=== PATIENT | female | born 1975 | race Caucasian/White ===

== ENCOUNTER 2018-11-23 20:40 | Emergency (ER) | payer OTHER ==
--- OUTSIDE RECORDS SUMMARY | 2018-11-23 20:42 | XMS REPORT ---
:1975 [facility] Address [address] [place] [address] [address] [place] [address] Care Team Providers Name Role Phone Unavailable Unavailable Unavailable Problems This patient has no known problems. Allergies, Adverse Reactions, Alerts This patient has no known allergies or adverse reactions. Medications This patient has no known medications.
[2018-11-23] MEDS ORDERED: TETANUS & DIPHTHERIA TOX,ADULT 0.5 ML VIAL ONE (21:49)
[2018-11-23] MEDS ORDERED: CODEINE 30MG/APAP 300MG TAB ONE (21:49)
[2018-11-23] MEDS ORDERED: AMOX/K CLAV 875 MG TAB ONE (21:49)
--- NOTE | 2018-11-23 22:11 | RAD REPORT ---
EXAM DESCRIPTION: RAD - Hand Left 3 View - 11/23/2018 10:05 pm CLINICAL HISTORY: ANIMAL BITE COMPARISON: No comparisons FINDINGS: Soft tissue swelling is seen affecting the second digit left hand. No fracture, dislocatio n or radiopaque foreign body.
--- NOTE | 2018-11-23 22:29 | ER ---
Nurse's Notes [facility] Name: Emy Sheffield Age: 43 yrs Sex: Female : 1975 Arrival Date: 11/23/2018 Time: 20:40 Bed 28 Private MD: Diagnosis: Bitten by rat;Puncture wound without foreign body of left middle finger without damage to nail;Puncture wound without foreign body of left index finger without damage to nail Presentation: 11/23 20:44 Presenting complaint: Patient states: There was a rat caught in a drawer and I was la1 trying to get it out and it bit my fingers this morning. Transition of care: patient was not received from another setting of care. Onset of symptoms was November 23, 2018. Risk Assessment: Do you want to hurt yourself or someone else? Patient reports no desire to harm self or others. Initial Sepsis Screen: Does the patient meet any 2 criteria? No. Patient's initial sepsis screen is negative. Does the patient have a suspected source of infection? No. Patient's initial sepsis screen is negative. Care prior to arrival: None. 20:44 Method Of Arrival: Ambulatory la1 20:44 Acuity: NADIA 3 la1 Triage Assessment: 22:18 Bite description: bite sustained to left hand by a rat, animal information: mg2 vaccination(s). General: Appears in no apparent distress. comfortable, Behavior is calm, cooperative. 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 - Social history:: Smoking status: Patient uses tobacco products, smokes one-half pack cigarettes per day. - Ebola Screening: : No symptoms or risks identified at this time. Screenin:51 Abuse screen: Denies threats or abuse. Denies injuries from another. Nutritional mg2 screening: No deficits noted. Tuberculosis screening: No symptoms or risk factors identified. Fall Risk None identified. Assessment: 20:53 General: Appears in no apparent distress. comfortable, Behavior is calm, cooperative. mg2 Pain: Complains of pain in left index and middle finger Pain does not radiate. Pain currently is 5 out of 10 on a pain scale. Quality of pain is described as aching, Pain began suddenly, this morning \T\ 9 am Is intermittent, Alleviated by medications, Aggravated by touch. Neuro: Level of Consciousness is awake, alert, obeys commands, Oriented to person, place, time, situation. Cardiovascular: Capillary refill < 3 seconds Patient's skin is warm and dry. Respiratory: Airway is patent Respiratory effort is even, unlabored, Respiratory pattern is regular, symmetrical. GI: No signs and/or symptoms were reported involving the gastrointestinal system. : No signs and/or symptoms were reported regarding the genitourinary system. EENT: No signs and/or symptoms were reported regarding the EENT system. Derm: Skin is intact, is healthy with good turgor, Skin is pink, warm \T\ dry. normal, Skin temperature is warm Wound noted left hand Wound is closed, no bleeding noted. Musculoskeletal: Circulation, motion, and sensation intact. Capillary refill < 3 seconds, Swelling present in left index and middle finger. Injury Description: Bite sustained to left hand caused by a rat, is superficial, was sustained \T\ 0900 today. 22:18 Reassessment: Patient appears in no apparent distress at this time. Patient and/or mg2 family updated on plan of care and expected duration. Pain level reassessed. Patient is alert, oriented x 3, equal unlabored respirations, skin warm/dry/pink. Vital Signs: 20:45 BP 121 / 81; Pulse 78; Resp 18; Temp 98.4; Pulse Ox 98% on R/A; Weight 104.33 kg; la1 Height 5 ft. 1 in. (154.94 cm); 22:20 BP 124 / 73; Pulse 82; Resp 18; Pulse Ox 100% on R/A; mg2 20:45 Body Mass Index 43.46 (104.33 kg, 154.94 cm) la1 ED Course: 20:40 Patient arrived in ED. ag3 20:44 Triage completed. la1 20:45 Arm band placed on left wrist. la1 20:46 Rudi Mari NP is PHCP. pm1 20:46 Claudine Choe MD is Attending Physician. pm1 20:50 Bobo Vernon RN is Primary Nurse. mg2 21:00 No provider procedures requiring assistance completed. Patient did not have IV access mg2 during this emergency room visit. 22:06 Hand Left 3 View XRAY In Process Unspecified. EDMS 22:19 Patient has correct armband on for positive identification. mg2 Administered Medications: 21:44 Drug: Augmentin 875 mg Route: PO; mg2 22:42 Follow up: Response: No adverse reaction mg2 21:44 Drug: Tetanus-Diphtheria Toxoid Adult 0.5 ml {Photographic Plate Maker: [employer]. Exp: mg2 12/03/2020. Lot #: [id number]. } Route: IM; Site: left deltoid; 22:42 Follow up: Response: No adverse reaction mg2 21:44 Drug: Tylenol #3 (300 mg-30 mg) 1 tablet Route: PO; mg2 22:42 Follow up: Response: No adverse reaction; Marked relief of symptoms; Pain is decreased mg2 Outcome: 22:28 Discharge ordered by MD. pm1 22:42 Discharged to home ambulatory, with family. mg2 22:42 Condition: stable 22:42 Discharge instructions given to patient, family, Instructed on discharge instructions, follow up and referral plans. medication usage, Demonstrated understanding of instructions, follow-up care, medications, wound care, Prescriptions given X 2. 22:43 Patient left the ED. mg2 Signatures: Dispatcher [employer] EDMS Seth Burnett RN RN la1 Rudi Mari, YASMIN PACKAGE CRIMPER pm1 Bobo Vernon RN RN mg2 Mireya Jovel3
--- NOTE | 2018-11-23 22:29 | EDPHYS ---
Physician Documentation [facility] Name: Emy Sheffield Age: 43 yrs Sex: Female : 1975 Arrival Date: 11/23/2018 Time: 20:40 Bed 28 Private MD: ED Physician Claudine Choe HPI: 11/23 21:45 This 43 yrs old Female presents to ER via Ambulatory with complaints of pm1 Animal Bite. 21:45 The patient was bitten on the left hand, by a rat, Attempting to remove rat, at home. pm1 Onset: The symptoms/episode began/occurred this morning. Animal information: The animal was reported to appear healthy. Rat currently still trapped in her drawer. Secondary to the bite the patient reports multiple puncture wounds, 2nd and 3rd left fingers. Associated signs and symptoms: Pertinent negatives: fever, numbness distal to wound, suspected foreign body. The patient has not experienced similar symptoms in the past. The patient has not recently seen a physician. 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 - Social history:: Smoking status: Patient uses tobacco products, smokes one-half pack cigarettes per day. - Ebola Screening: : No symptoms or risks identified at this time. ROS: 21:45 Constitutional: Negative for fever, chills, and weight loss, Eyes: Negative for injury, pm1 pain, redness, and discharge, ENT: Negative for injury, pain, and discharge, Neck: Negative for injury, pain, and swelling, Cardiovascular: Negative for chest pain, palpitations, and edema, Respiratory: Negative for shortness of breath, cough, wheezing, and pleuritic chest pain, Abdomen/GI: Negative for abdominal pain, nausea, vomiting, diarrhea, and constipation, Back: Negative for injury and pain, : Negative for injury, bleeding, discharge, and swelling, MS/Extremity: Negative for injury and deformity. 21:45 Neuro: Negative for headache, weakness, numbness, tingling, and seizure. 21:45 Skin: Positive for puncture, of the palmar aspect of distal phalanx of left middle finger and palmar aspect of proximal phalanx of left index finger. Exam: 21:45 Constitutional: This is a well developed, well nourished patient who is awake, alert, pm1 and in no acute distress. Head/Face: Normocephalic, atraumatic. Chest/axilla: Normal chest wall appearance and motion. Nontender with no deformity. No lesions are appreciated. Cardiovascular: Regular rate and rhythm with a normal S1 and S2. No gallops, murmurs, or rubs. Normal PMI, no JVD. No pulse deficits. Respiratory: Lungs have equal breath sounds bilaterally, clear to auscultation and percussion. No rales, rhonchi or wheezes noted. No increased work of breathing, no retractions or nasal flaring. Abdomen/GI: Soft, non-tender, with normal bowel sounds. No distension or tympany. No guarding or rebound. No evidence of tenderness throughout. Back: No spinal tenderness. No costovertebral tenderness. Full range of motion. 21:45 Skin: Appearance: normal except for affected area, injury, puncture(s), that are superficial, of the palmar aspect of proximal phalanx of left index finger and palmar aspect of distal phalanx of left middle finger. 21:45 Neuro: Orientation: is normal, Motor: is normal, moves all fours, Sensation: is normal, no obvious gross deficits. Vital Signs: 20:45 BP 121 / 81; Pulse 78; Resp 18; Temp 98.4; Pulse Ox 98% on R/A; Weight 104.33 kg; la1 Height 5 ft. 1 in. (154.94 cm); 22:20 BP 124 / 73; Pulse 82; Resp 18; Pulse Ox 100% on R/A; mg2 20:45 Body Mass Index 43.46 (104.33 kg, 154.94 cm) la1 MDM: 20:47 Patient medically screened. pm1 22:26 Data reviewed: vital signs. Data interpreted: Pulse oximetry: on room air is 100 %. pm1 Interpretation: normal. Counseling: I had a detailed discussion with the patient and/or guardian regarding: the historical points, exam findings, and any diagnostic results supporting the discharge/admit diagnosis, radiology results, the need for outpatient follow up, to return to the emergency department if symptoms worsen or persist or if there are any questions or concerns that arise at home. 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 Exp: mg2 12/03/2020. Lot #: [id number]. } Route: IM; Site: left deltoid; 22:42 Follow up: Response: No adverse reaction mg2 21:44 Drug: Tylenol #3 (300 mg-30 mg) 1 tablet Route: PO; mg2 22:42 Follow up: Response: No adverse reaction; Marked relief of symptoms; Pain is decreased mg2 Disposition: 11/24 02:53 Co-signature as Attending Physician, Claudine Choe MD. ma2 Disposition: 11/23/18 22:28 Discharged to Home. Impression: Bitten by rat, Puncture wound without foreign body of left middle finger without damage to nail, Puncture wound without foreign body of left index finger without damage to nail. - Condition is Stable. - Discharge Instructions: Animal Bite. - Prescriptions for Augmentin 875- 125 mg Oral Tablet - take 1 tablet by ORAL route every 12 hours for 10 days; 20 tablet. Tylenol- Codeine #3 300-30 mg Oral Tablet - take 2 tablets by ORAL route every 6 hours As needed; 20 tablet. - Medication Reconciliation Form, Thank You Letter, Antibiotic Education, Prescription Opioid Use form. - Follow up: Emergency Department; When: As needed; Reason: Worsening of condition. Follow up: Private Physician; When: 1 - 2 days; Reason: Recheck today's complaints, Continuance of care, Re-evaluation by your physician, Health department for evalution and treatment of the animal bite and need for rabies vaccine. - Problem is new. - Symptoms have improved. - Notes: Follow up with the [phone] Signatures: Dispatcher [employer] EDMS Seth Burnett RN RN la1 Rudi Mari, MANAGER BRIDGE MANAGER BRIDGE pm1 Claudine Choe MD MD ma2 Bobo Vernon RN RN mg2 Corrections: (The following items were deleted from the chart) 11/23 22:43 22:28 11/23/2018 22:28 Discharged to Home. Impression: Bitten by rat; Puncture wound mg2 without foreign body of left middle finger without damage to nail; Puncture wound without foreign body of left index finger without damage to nail. Condition is Stable. Forms are Medication Reconciliation Form, Thank You Letter, Antibiotic Education, Prescription Opioid Use. Follow up: Emergency Department; When: As needed; Reason: Worsening of condition. Follow up: Private Physician; When: 1 - 2 days; Reason: Recheck today's complaints, Continuance of care, Re-evaluation by your physician, Health department for evalution and treatment of the animal bite and need for rabies vaccine. Problem is new. Symptoms have improved. pm1
[2018-11-23 23:22] VITALS: TEMP 98.4
[2018-11-23 23:23] VITALS: BP 124/73; O2SAT 100
== END 2018-11-23 22:43 | disposition home or self-care (01) ==
LOC: ER 20:40
DX: S61.231A Puncture wound without foreign body of left index finger without damage to nail, initial encounter (principal); W53.11XA Bitten by rat, initial encounter; Y93.89 Activity, other specified; Y92.009 Unspecified place in unspecified non-institutional (private) residence as the place of occurrence of the external cause; Z23 Encounter for immunization; F17.210 Nicotine dependence, cigarettes, uncomplicated
CPT/HCPCS: 90714; 99283

== ENCOUNTER 2020-06-06 19:29 | Emergency (ER) | payer OTHER ==
[2020-06-06] MEDS ORDERED: ACETAMINOPHEN 325 MG TABLET ONE (20:08)
[2020-06-06] MEDS ORDERED: IBUPROFEN 400 MG TAB ONE (20:08)
--- NOTE | 2020-06-06 20:23 | RAD REPORT ---
EXAM DESCRIPTION: RAD - Knee Left 3 View - 06/06/2020 8:15 pm CLINICAL HISTORY: Left knee pain FINDINGS: No fracture or dislocation is seen. Soft tissue swelling anteriorly
--- NOTE | 2020-06-06 20:25 | RAD REPORT ---
EXAM DESCRIPTION: RAD - Foot Right 3 View - 06/06/2020 8:15 pm CLINICAL HISTORY: Right foot pain FINDINGS: No fracture or dislocation is seen Hallux valgus deformity. Large plantar calcaneal spur
--- NOTE | 2020-06-06 20:32 | EDPHYS ---
Physician Documentation [facility] Name: Emy Sheffield Age: 44 yrs Sex: Female : 1975 Arrival Date: 06/06/2020 Time: 19:31 Bed 20 Private MD: ED Physician Derick Elizabeth HPI: 06/06 20:00 This 44 yrs old Female presents to ER via Wheelchair with complaints of Left cp Knee and Right Foot Pain. 20:00 The patient presents with an injury, pain, that is acute. The complaints affect the cp left knee and right foot. Context: while walking up stairs today, left knee gave out causing patient to fall and hyper flex right foot. 20:00 Associated signs and symptoms: Pertinent negatives calf tenderness, numbness. Treatment cp prior to arrival includes: no previous treatment. 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 - Social history:: Smoking status: Patient reports the use of cigarette tobacco products, 5-6 A DAY. ROS: 20:05 Constitutional: Negative for body aches, chills, fever, poor PO intake. cp 20:05 Eyes: Negative for injury, pain, redness, and discharge. cp 20:05 ENT: Negative for ear pain, sore throat, difficulty swallowing, difficulty handling secretions. 20:05 Neck: Negative for pain with movement, pain at rest, stiffness. 20:05 Cardiovascular: Negative for chest pain, palpitations. 20:05 Respiratory: Negative for cough, shortness of breath, wheezing. 20:05 Abdomen/GI: Negative for abdominal pain. 20:05 Back: Negative for pain at rest, pain with movement. 20:05 MS/extremity: Positive for pain, tenderness, of the right foot and left knee, Negative for decreased range of motion, deformity, paresthesias. 20:05 Neuro: Negative for altered mental status, headache, loss of consciousness, syncope, weakness. 20:05 All other systems are negative. Exam: 20:12 Constitutional: The patient appears in no acute distress, alert, awake, non-toxic, well cp developed, well nourished, obese. 20:12 Head/Face: Normocephalic, atraumatic. cp 20:12 Chest/axilla: Inspection: normal. 20:12 Cardiovascular: Rate: normal. 20:12 Respiratory: the patient does not display signs of respiratory distress, Respirations: normal, no use of accessory muscles, no retractions, labored breathing, is not present. 20:12 Abdomen/GI: Exam negative for discomfort, distension, guarding, Inspection: abdomen appears normal. 20:12 Back: pain, is absent, vertebral tenderness, is not appreciated. 20:12 Musculoskeletal/extremity: Extremities: grossly normal except: noted in the right foot: pain, tenderness, There is no evidence of deformity, noted in the left knee: pain, tenderness, no evidence of decreased ROM, deformity. 20:12 Neuro: Orientation: to person, place \T\ time. Mentation: is normal, Motor: moves all fours, strength is normal, Sensation: is normal. Vital Signs: 19:33 BP 123 / 65; Pulse 76; Resp 20; Temp 98.3(O); Pulse Ox 95% on R/A; Weight 104.33 kg; vc Height 5 ft. 2 in. (157.48 cm); Pain 7/10; 20:53 BP 106 / 69; Pulse 76; Resp 18; Pulse Ox 99% on R/A; wh 19:33 Body Mass Index 42.07 (104.33 kg, 157.48 cm) vc MDM: 19:41 Patient medically screened. cp 20:00 Differential diagnosis: dislocation, closed fracture, contusion, tendonitis. cp 20:30 Data reviewed: vital signs, nurses notes, radiologic studies, plain films. cp 20:30 Counseling: I had a detailed discussion with the patient and/or guardian regarding: the historical points, exam findings, and any diagnostic results supporting the discharge/admit diagnosis, radiology results, to return to the emergency department if symptoms worsen or persist or if there are any questions or concerns that arise at home. Response to treatment: the patient's symptoms have mildly improved after treatment, and as a result, I will discharge patient. 06/06 19:42 Order name: XRAY Foot RIGHT 3 View; Complete Time: 20:27 cp 06/06 20:27 Interpretation: Report reviewed. cp 06/06 19:42 Order name: XRAY Knee LEFT 3 view; Complete Time: 20:27 cp 06/06 20:27 Interpretation: Report reviewed. cp 06/06 20:30 Order name: Frankie wrap-joint: left knee; Complete Time: 20:53 cp 06/06 20:30 Order name: Crutches; Complete Time: 20:53 cp Administered Medications: 20:02 Drug: Ibuprofen 800 mg Route: PO; 20:53 Follow up: Response: No adverse reaction; Pain is decreased 20:02 Drug: Tylenol 650 mg Route: PO; 20:53 Follow up: Response: No adverse reaction; Pain is decreased Disposition: 06/07 04:36 Co-signature as Attending Physician, Derick Elizabeth MD. [email or web address] Disposition: 06/06/20 20:31 Discharged to Home. Impression: Pain in left knee, Pain in right foot. - Condition is Stable. - Discharge Instructions: Elastic Bandage and RICE, Knee Pain, Foot Pain. - Prescriptions for Naprosyn 500 mg Oral Tablet - take 1 tablet by ORAL route 2 times per day take with food; 20 tablet. - Medication Reconciliation Form, Thank You Letter, Antibiotic Education, Prescription Opioid Use form. - Follow up: Qasim Zepeda MD; When: 2 - 3 days; Reason: Worsening of condition. - Problem is new. - Symptoms have improved. Signatures: Dispatcher [employer] EDMS Michael Aguilar PA PA cp Habalo, Winsy Jenna Robert RN RN vc Holmes, Maurice, MD MD [email or web address] Corrections: (The following items were deleted from the chart) 06/06 20:03 19:55 Social history: Smoking status: Patient/guardian denies using [facility] 20:54 20:31 06/06/2020 20:31 Discharged to Home. Impression: Pain in left knee; Pain in right foot. Condition is Stable. Forms are Medication Reconciliation Form, Thank You Letter, Antibiotic Education, Prescription Opioid Use. Follow up: Qasim Zepeda; When: 2 - 3 days; Reason: Worsening of condition. Problem is new. Symptoms have improved. cp
--- NOTE | 2020-06-06 20:32 | ER ---
Nurse's Notes [facility] Name: Emy Sheffield Age: 44 yrs Sex: Female : 1975 Arrival Date: 06/06/2020 Time: 19:31 Bed 20 Private MD: Diagnosis: Pain in left knee;Pain in right foot Presentation: 06/06 19:33 Chief complaint: Patient states: "A WEEK AGO I WAS KNEELING ON THE WOODEN FRAME ON MY MOMS BED AND FELT MY KNEE POP. TODAY I WAS WALKING UP SOME STEPS AND MY LEFT KNEE GAVE OUT AND I FELL, WHEN I FELL MY RIGHT TOE BENT ALL THE WAY BACK ON THE TOP OF MY FOOT. 19:33 Coronavirus screen: Patient denies a cough. Patient reports shortness of breath or vc difficulty breathing. Patient denies measured and/or subjective temperature greater than 100.4F prior to today's visit. Patient denies travel on a cruise ship or to a country the [facility] currently lists as an affected area. Patient denies contact with known and/or suspected case of COVID-19. Proceed with normal triage. Patient instructed to continue to wear a mask when interacting with others. Patient moved to private room, placed in contact and droplet isolation with eye protection until further assessment. SOB ONLY WITH EXERTION, PATIENT STATES SECONDARY TO SMOKING. Prior COVID test. Ebola Screen: No symptoms or risks identified at this time. Initial Sepsis Screen: Does the patient meet any 2 criteria? No. Patient's initial sepsis screen is negative. Does the patient have a suspected source of infection? No. Patient's initial sepsis screen is negative. Risk Assessment: Do you want to hurt yourself or someone else? Patient reports no desire to harm self or others. Onset of symptoms was June 06, 2020. 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 - Social history:: Smoking status: Patient reports the use of cigarette tobacco products, 5-6 A DAY. Screenin:56 Abuse screen: Denies threats or abuse. Denies injuries from another. Nutritional wh screening: No deficits noted. Tuberculosis screening: No symptoms or risk factors identified. Fall Risk Fall in past 12 months (25 points). Assessment: 19:51 General: Appears in no apparent distress. Behavior is calm, cooperative, appropriate wh for age. Pain: Complains of pain in left knee and right foot Pain does not radiate. Pain currently is 7 out of 10 on a pain scale. Quality of pain is described as aching, Pain began 2-3 days ago. Neuro: Level of Consciousness is awake, alert, obeys commands, Oriented to person, place, time, situation, Appropriate for age. Cardiovascular: Capillary refill < 3 seconds. Respiratory: Airway is patent Respiratory effort is even, unlabored, Respiratory pattern is regular, symmetrical. GI: Abdomen is flat, non-distended. : No signs and/or symptoms were reported regarding the genitourinary system. EENT: No signs and/or symptoms were reported regarding the EENT system. Derm: Skin is intact, is healthy with good turgor, Skin is pink, warm \\T\\ dry. normal. Musculoskeletal: Circulation, motion, and sensation intact. 20:54 Reassessment: Patient appears in no apparent distress at this time. No changes from previously documented assessment. Patient and/or family updated on plan of care and expected duration. Pain level reassessed. Patient is alert, oriented x 3, equal unlabored respirations, skin warm/dry/pink. Vital Signs: 19:33 BP 123 / 65; Pulse 76; Resp 20; Temp 98.3(O); Pulse Ox 95% on R/A; Weight 104.33 kg; vc Height 5 ft. 2 in. (157.48 cm); Pain 7/10; 20:53 BP 106 / 69; Pulse 76; Resp 18; Pulse Ox 99% on R/A; wh 19:33 Body Mass Index 42.07 (104.33 kg, 157.48 cm) vc ED Course: 19:31 Patient arrived in ED. cl3 19:34 Michael Aguilar PA is PHCP. cp 19:34 Derick Elizabeth MD is Attending Physician. cp 19:51 Moses Witt is Primary Nurse. wh 19:55 Triage completed. 19:56 Arm band placed on right wrist. 19:56 Patient has correct armband on for positive identification. Bed in low position. Call light in reach. Side rails up X 1. Pulse ox on. NIBP on. 20:15 XRAY Foot RIGHT 3 View In Process Unspecified. EDMS 20:15 XRAY Knee LEFT 3 view In Process Unspecified. EDMS 20:31 Qasim Zepeda MD is Referral Physician. cp 20:54 No provider procedures requiring assistance completed. Patient did not have IV access wh during this emergency room visit. Administered Medications: 20:02 Drug: Ibuprofen 800 mg Route: PO; 20:53 Follow up: Response: No adverse reaction; Pain is decreased 20:02 Drug: Tylenol 650 mg Route: PO; 20:53 Follow up: Response: No adverse reaction; Pain is decreased Outcome: 20:31 Discharge ordered by . cp 20:54 Discharged to home via wheelchair. 20:54 Condition: stable 20:54 Discharge instructions given to patient, Instructed on discharge instructions, follow up and referral plans. medication usage, crutch walking, POC Demonstrated understanding of instructions, follow-up care, medications, crutch walking, POC Prescriptions given X 1. 20:54 Patient left the ED. Signatures: Dispatcher [employer] EDDC Michael Aguilar PA PA cp [place], Winsy Pasquale Noguera cl3 Jenna Robert RN RN vc Corrections: (The following items were deleted from the chart) 20:03 19:53 Chief complaint: Patient states: left knee pain that started a week ago and gave wh out today. Also C/O right foot pain that started today 20:03 19:53 Coronavirus screen: Patient denies a cough. Patient denies shortness of breath or wh difficulty breathing. Patient denies measured and/or subjective temperature greater than 100.4F prior to today's visit. Patient denies travel on a cruise ship or to a country the [facility] currently lists as an affected area. Patient denies contact with known and/or suspected case of COVID-19. Proceed with normal triage. 20:03 19:53 Ebola Screen: Patient negative for fever greater than or equal to 101.5 degrees wh Fahrenheit, and additional compatible Ebola Virus Disease symptoms Patient denies exposure to infectious person. 20:03 19:53 Initial Sepsis Screen: Does the patient meet any 2 criteria? No. Patient's initial sepsis screen is negative. Does the patient have a suspected source of infection? No. Patient's initial sepsis screen is negative. 19:53 Risk Assessment: Do you want to hurt yourself or someone else? Patient reports no desire to harm self or others. 19:53 Onset of symptoms was June 06, 2020 [facility] 19:53 Method Of Arrival: Wheelchair [facility] 19:53 BP 123 / 65; Pulse 81bpm; Resp 18bpm; Pulse Ox 100%; Temp 98.2F; 104.33 kg; wh Height 5 ft. 2 in.; BMI: 42.0; Pain 7/10; 19:53 Acuity: NADIA 4 [facility] 19:55 Social history: Smoking status: Patient/guardian denies using [facility]
[2020-06-06 20:59] VITALS: TEMP 98.3
[2020-06-06 21:03] VITALS: BP 106/69; O2SAT 99
== END 2020-06-06 20:54 | disposition home or self-care (01) ==
LOC: ER 19:29
DX: M25.562 Pain in left knee (principal); M79.671 Pain in right foot; F17.210 Nicotine dependence, cigarettes, uncomplicated
CPT/HCPCS: 99284

== ENCOUNTER 2021-11-10 00:38 | Emergency (ER) | payer OTHER ==
--- OUTSIDE RECORDS SUMMARY | 2021-11-10 00:43 | XMS REPORT | Continuity of Care Document ---
:1975 Author Organization [facility] t Address [address] [place] [address] Care Team Providers Name Role Phone John SOLORIO Attending Clinician Blake HALEY Attending Clinician Unavailable Singer SANDOVAL Attending Clinician Rica MESSER T Attending Clinician Unavailable Marino Puga Attending Clinician Doctor Unassigned, Name Attending Clinician Unavailable Payers Payer Name Policy Type Policy Number Effective Date Expiration Date S ource Problems Condition Condition Condition Status Onset Resolution Last Treating Co mments Source Name Details Category Date Date Treatment Clinician Date No known No known Disease Unive rs active active ity of problems problems [facility] Allergies, Adverse Reactions, Alerts Allergy Allergy Status Severity Reaction(s) Onset Inactive Treating Comm ents Source Name Type Date Date Clinician NO KNOWN Drug Active Univers ALLERGIE Class ity of S [facility] Social History Social Habit Start Date Stop Date Quantity Comments Source Exposure to Not sure [facility] SARS-CoV-2 (event) Medica l Branch Sex Assigned At [birth year] [facility] 00:00:00 00:00:00 [facility] Smoking Status Start Date Stop Date Source Unknown if ever smoked [facility] Medications Ordered Filled Start Stop Current Ordering Indication Dosage Frequency Signature Comments Components Source Medication Medication Date Date Medication? Clinician (SIG) Name Name ketorolac 2020- No 60mg 60 mg, Unive rs (TORADOL) 05-20 07-06 Intramuscu ity of injection 06:15: 05:35 lar, ONCE, [place] 60 mg 00 :00 1 dose, Medical 05/20/21 Branch at 0115, NILO
Fa culty member approving Restricted medication : EMERGENCY ROOM, ibuprofen Yes [id number] 800mg Take 1 Univers 800 mg 7-06 tablet by ity of tablet 00:00: mouth [place] 00 every 8 Medical (eight) Branch hours as needed for Pain (scale 4-6). acetaminoph 2020- No 4647 1{tbl} Take 1 U nivers en-codeine 7 07-14 tablet by ity of 300-30 mg 00:00: 04:59 mouth [place] tablet 00 :00 every 6 Medical (six) Branch hours as needed for Pain (scale 7-10) for up to 7 days. Indication s: acute pain HYDROcodone No 1{tbl} 1 tablet, Univers -acetaminop 03-22-08 Oral, ity of hen (NORCO) 06:45: 05:58 [place]CE[place] 1 [place] 10-325 mg 00 :00 dose, Sat Medic al tablet 1 03/22/21 at Branch tablet 0145, Routine methylPREDN 2020- No 1000mg 1,000 mg, Univers ISolone 03-22-08 Intravenou ity o f sodium 06:45: 06:04 s, ONCE, 1 [place] succ[place] :00 dose, Sat Medic al (SOLU-MEDRO 03/22/21 at [facility] L) 0145, NILO injection 1,000 mg carBAMazepi Yes [id number] 100mg Take 1 Univers ne 100 mg 5-08 capsule by ity of 12 hr 00:00: mouth 2 [place] capsule 00 (two) Medical times Branch daily. carBAMazepi Yes [id number] 100mg Take 1 Univers ne 100 mg 5-08 capsule by ity of 12 hr 00:00: mouth 2 [place] capsule 00 (two) Medical times Branch daily. ondansetron 2019- No 4mg 4 mg, Univ ers (ZOFRAN-ODT 07-19 Oral, ity of ) 21:15: 20:43 ONCE, 1 [place] disintegrat 00 :00 dose, Fri Med ical ing tablet 07/19/20 at [facility] ch 4 mg 1615, Routine ibuprofen 2020-0 2020- No 800mg 800 mg, Uni vers (IBU) 9- 09-04 Oral, ity of tablet 800 21:15: 20:44 ONCE, 1 [place] as mg 00 :00 dose, Fri Medical 07/19/20 at Branch 1615, NILO ibuprofen 2020-0 Yes [id number] 800mg Take 1 U nivers 800 mg 9-04 tablet by ity of tablet 00:00: mouth 3 (three) Medical times Branch daily with meals. albuterol 2020-0 Yes [id number] 2{puff} Inhale 2 Univers 90 9-04 Puffs ity of mcg/actuati 00:00: every 4 [place] as on inhaler 00 (four) Medical hours as Branch needed for Wheezing or Shortness of Breath. benzonatate 2020-0 Yes [id number] 100mg Take 1 Univers 100 mg 9-04 capsule by ity of capsule 00:00: mouth 3 (three) Medical times Branch daily as needed for Cough. ondansetron 2020-0 Yes [id number] 4mg Take 1 Univers (ZOFRAN 9-04 tablet by ity of ODT) 4 mg 00:00: mouth [place] disintegrat 00 every 8 Medic al ing tablet (eight) Branch hours as needed for Nausea and Vomiting (N/V). ibuprofen 2020-0 Yes [id number] 800mg Take 1 U nivers 800 mg 9-04 tablet by ity of tablet 00:00: mouth 3 (three) Medical times Branch daily with meals. albuterol 2020-0 Yes [id number] 2{puff} Inhale 2 Univers 90 9-04 Puffs ity of mcg/actuati 00:00: every 4 [place] as on inhaler 00 (four) Medical hours as Branch needed for Wheezing or Shortness of Breath. benzonatate 2020-0 Yes [id number] 100mg Take 1 Univers 100 mg 9-04 capsule by ity of capsule 00:00: mouth 3 (three) Medical times Branch daily as needed for Cough. ondansetron 2020-0 Yes [id number] 4mg Take 1 Univers (ZOFRAN 9-04 tablet by ity of ODT) 4 mg 00:00: mouth [place] disintegrat 00 every 8 Medic al ing tablet (eight) Branch hours as needed for Nausea and Vomiting (N/V). ibuprofen 2020-0 Yes [id number] 800mg Take 1 U nivers 800 mg 9-04 tablet by ity of tablet 00:00: mouth 3 (three) Medical times Branch daily with meals. albuterol 2020-0 Yes [id number] 2{puff} Inhale 2 Univers 90 9-04 Puffs ity of mcg/actuati 00:00: every 4 [place] as on inhaler 00 (four) Medical hours as Branch needed for Wheezing or Shortness of Breath. benzonatate 2020-0 Yes [id number] 100mg Take 1 Univers 100 mg 9-04 capsule by ity of capsule 00:00: mouth (three) Medical times Branch daily as needed for Cough. ondansetron 2020-0 Yes [id number] 4mg Take 1 Univers (ZOFRAN 9-04 tablet by ity of ODT) 4 mg 00:00: mouth [place] disintegrat 00 every 8 Medic al ing tablet (eight) Branch hours as needed for Nausea and Vomiting (N/V). ibuprofen 2020-0 Yes [id number] 800mg Take 1 U nivers 800 mg 9-04 tablet by ity of tablet 00:00: mouth (three) Medical times Branch daily with meals. albuterol 2020-0 Yes [id number] 2{puff} Inhale 2 Univers 90 9-04 Puffs ity of mcg/actuati 00:00: every 4 [place] as on inhaler 00 (four) Medical hours as Branch needed for Wheezing or Shortness of Breath. benzonatate 2020-0 Yes [id number] 100mg Take 1 Univers 100 mg 9-04 capsule by ity of capsule 00:00: mouth (three) Medical times Branch daily as needed for Cough. ondansetron 2020-0 Yes [id number] 4mg Take 1 Univers (ZOFRAN 9-04 tablet by ity of ODT) 4 mg 00:00: mouth [place] disintegrat 00 every 8 Medic al ing tablet (eight) Branch hours as needed for Nausea and Vomiting (N/V). Vital Signs Vital Name Observation Time Observation Value Comments Source Systolic blood 2021-05-20 09:00:00 125 mm[Hg] Univer sity of [facility] Diastolic blood 2021-05-20 09:00:00 67 mm[Hg] Unive rsity of [facility] Heart rate 2021-05-20 09:00:00 65 /min [facility]i ty [facility] [place] [facility] Respiratory rate 2021-05-20 09:00:00 22 /min Univ ers[facility] [place] [facility] Oxygen saturation in 2021-05-20 09:00:00 96 /min University of Arterial blood by [place] [facility] kenny Pulse oximetry Branch Body temperature 2021-05-20 05:48:50 36.83 Bee Univ [facility] [place] [facility] Body weight 2021-05-20 04:38:00 127.007 kg [facility] [place] [facility] BMI 2021-05-20 04:38:00 51.21 kg/m2 [facility] [place] [facility] Systolic blood 2021-03-22 08:13:39 115 mm[Hg] Univer sity of pressure [place] [facility] Diastolic blood 2021-03-22 08:13:39 66 mm[Hg] Unive rsity of pressure [place] [facility] Heart rate 2021-03-22 08:13:39 69 /min [facility] [place] [facility] Respiratory rate 2021-03-22 08:13:39 17 /min Univ [facility] [place] [facility] Oxygen saturation in 2021-03-22 08:13:39 97 /min University of Arterial blood by [facility] kenny Pulse oximetry Branch Body temperature 2021-03-22 03:23:00 36.78 Bee Univ [facility] [place] [facility] Body weight 2021-03-22 03:23:00 107.956 kg [facility] [place] [facility] BMI 2021-03-22 03:23:00 43.53 kg/m2 [facility] [place] [facility] Systolic blood 2020-07-19 22:50:00 122 mm[Hg] Univer sity of [facility] [place] [facility] Diastolic blood 2020-07-19 22:50:00 80 mm[Hg] Unive rsity of pressure [place] [facility] Heart rate 2020-07-19 22:50:00 76 /min [facility] [place] [facility] Respiratory rate 2020-07-19 22:50:00 18 /min Univ [facility] [place] [facility] Oxygen saturation in 2020-07-19 22:50:00 96 /min University of Arterial blood by [facility] kenny Pulse oximetry Branch Body temperature 2020-07-19 18:32:00 35.67 Bee [facility] [place] [facility] Body height 2020-07-19 18:32:00 157.5 cm [facility] Body weight 2020-07-19 18:32:00 104.327 kg [facility] BMI 2020-07-19 18:32:00 42.07 kg/m2 [facility] Procedures Procedure Date / Time Performing Clinician Source Performed NOTICE OF PRIVACY 2021-05-20 06:34:01 Doctor Unassigned, No [facility] PRACTICES Name [facility] TROPONIN I 2021-05-20 06:26:00 John [facility] HEPATIC FUNCTION PANEL 2021-05-20 06:26:[id number] (ALB,T.PRO,BILI [facility] Branch T,BU/BC,ALT,AST,ALK PHOS) BASIC METABOLIC PANEL 2021-05-20 06:26:00 LopezHien alfaro [facility] (NA, K, CL, CO2, Medical Branch GLUCOSE, BUN, CREATININE, CA) N-TERMINAL PRO-BNP 2021-05-20 06:26:00 Hien Lopez [facility] XR CHEST 1 VW 2021-05-20 05:54:06 Lopez [facility] CBC WITH DIFF 2021-05-20 05:34:00 Lopez [facility] CONSENT/REFUSAL FOR 2021-05-20 04:29:34 Doctor Unassigned, No [facility] [place] [facility]REAT[facility] Name [facility] Branch CT HEAD WO CONTRAST 2021-03-22 06:22:21 Henri Lang [facility] COMP. METABOLIC PANEL 2021-03-22 05:59:00 [facility] ([id number]) Medical Branch SEDIMENTATION RATE 2021-03-22 05:59:00 Henri Lang [facility] CBC WITH DIFF 2021-03-22 05:59:00 Henri Lang o f [facility] NOTICE OF PRIVACY 2021-03-22 03:14:43 Doctor Unassigned, No [facility] PRACTICES Name Medical Branch CONSENT/REFUSAL FOR 2021-03-22 03:13:47 [facility], [facility] Name [facility] XR CHEST 1 VW 2020-07-19 21:42:00 Akshat Tidwell [facility] POCT TEST 2020-07-19 20:43:00 Akshat Tidwell [facility] ty of [facility] NOTICE OF PRIVACY 2020-07-19 18:26:22 Doctor Unassigned, No Univ [facility] PRACTICES Name [facility] CONSENT/REFUSAL FOR 2020-07-19 18:26:03 [facility] Name [facility] Encounters Start End Encounter Admission Attending Care Care Encounter Source Date/Time Date/Time Type Type Clinicians Facility Department ID 2021-05-19 2021-05-20 Emergency Lopez, [facility] [id number] Univers 23:38:00 04:14:00 Hien Orosco [id number] i ty of [place] [id number] [facility] [id number] [address] 2021-05-19 2021-05-19 Emergency X [facility] ERT [id number] Univers 23:27:00 23:27:00 ity of [facility] 2021-04-09 2021-04-09 Emergency E SUDHA, [facility] [id number] [facility] 13:24:00 18:34:00 BENNIE 2021-03-21 2021-03-22 Emergency , [facility] [id number] Univers 22:20:00 03:17:00 Henri Orosco [id number] i ty of [place] [id number] [facility] [id number] [address] 2021-03-21 2021-03-21 Emergency X [facility] ERT [id number] Univers 22:20:00 22:20:00 ity of [facility] 2020-07-21 2020-07-21 Letter BRIANNA Strauss [id number] Univers 00:00:00 00:00:00 (Out) Miriam CHONG [id number] it y [facility] [id number] Kunal [id number] [address] 2020-07-19 2020-07-19 Emergency DiannAkshat hernandez [facility] [id number] Univers 13:32:00 17:58:00 T Ana Luisa [id number] i ty of [place] [id number] [facility] [id number] [place] [id number] Branch 2020-07-19 2020-07-19 Emergency X [facility] ERT [id number] Univers 13:28:00 13:28:00 ity of [facility] 2020-07-19 2020-07-19 Orders Doctor BRIANNA [id number] Univers 00:00:00 00:00:00 Only Unassigned, ARLETTE [id number] ity of [place] [facility] 4.2.7.2.686 [facility] [id number] [facility] 00[address] [place] Results Test Description Test Time Test Comments Results Result Comments Source Troponin I 2021-05-20 08:34:06 Test Item Value Reference Range Interpretation Comme nts TROPONIN I (test code = 0.010 ng/mL See_Comment [Au tomated message] The 3721331635) system which ge nerated this result tra nsmitted reference range : <=0.034. The reference r kendal was not used to int erpret this result as normal/abnormal . RYAN (test code = RYAN) Reference (Normal) Range (defined by the 99th percentile reference limit): <= 0.034 ng/mL Note: Cardiac troponin begins to rise 3-4 hours after the onset of ischemia. Repeat in 4-6 hours if the sample was drawn within 3-4 hours of the onset of the symptom and found normal. Diagnosis of myocardial injury is made with acute changes in cTn concentrations with at least one serial sample above the 99th percentile upper reference limit (URL), taken together with the patient's clinical presentation. Biotin has been reported to cause a negative bias, interpret results relative to patient's use of biotin. Lab Interpretation Normal (test code = 42933-8) [facility] [id number] 08:22:33 Test Item Value Reference Range Interpretation Comments NT-proBNP (test code 72 pg/mL See_Comment [Autom ated = 7250006234) message] The system which generated this result transmitted reference range : <=125. The reference range was not used to interpret this result as normal/abnormal . RYAN (test code = RYAN) Biotin has been reported to cause a negative bias, interpret results relative to patient's use of biotin. Lab Interpretation Normal (test code = 33542-3) [facility] (ALB, T.PRO, BILI T, BU/BC, ALT, AST, ALK PHOS)2021-05-20 07:48:48 Test Item Value Reference Range Interpretation Comments TOTAL BILI (test code = 0081979735) 0.5 mg/dL 0.1-1.1 BILI UNCON (test code = 3539203410) 0.3 mg/dL 0.1-1.1 BILI CONJ (test code = 8317901879) 0.0 mg/dL 0.0-0.3 T PROTEIN (test code = 3671819190) 6.7 g/dL 6.3-8.2 ALBUMIN (test code = 8176025482) 4.1 g/dL 3.5-5.0 ALK PHOS (test code = 2489762377) 56 U/L 34-122 ALTv (test code = 1742-6) 26 U/L 5-35 AST(SGOT) (test code = 9529014042) 39 U/L 13-40 Lab Interpretation (test code = Normal 80217-0) [facility] (NA, K, CL, CO2, GLUCOSE, BUN, CREATININE, CA)2021-05-20 07:14:09 Test Item Value Reference Range Interpretation Comments NA (test code = 136 mmol/L 135-145 2861706517) K (test code = 4.5 mmol/L 3.5-5.0 4310636299) CL (test code = 104 mmol/L 98-108 9594180702) CO2 TOTAL (test code 26 mmol/L 23-31 = 2376973817) AGAP (test code = 2-16 9142319586) BUN (test code = 16 mg/dL 7-23 1613868531) GLUCOSE (test code = 93 mg/dL 70-110 8537880973) CREATININE (test code 0.81 mg/dL 0.50-1.04 = 8550570169) CALCIUM (test code = 9.1 mg/dL 8.6-10.6 5868268270) eGFR (test code = mL/min/1.73m2 2909631919) RYAN (test code = RYAN) Association of Glomerular Filtration Rate (GFR) and Staging of Kidney Disease* + + +- +| GFR (mL/min/1.73 m2) ?| With Kidney Damage ?| ?Without Kidney Damage+ ------+ ----+ ------+| ?>90 ?| ?Stage one ?| ? Normal ?+ -+ + -+| ?60-89 ?| ?Stage two ?| ? Decreased GFR ? + + +- +| ?30-59 ?| ?Stage three ?| ? Stage three ? + + +- +| ?15-29 ?| ?Stage four ? | ? Stage four ?+ -+ + -+| ?<15 (or dialysis) ? ?| ?Stage five ? | ? Stage five ?+ -+ + -+ *Each stage assumes the associated GFR level has been in effect for at least three months. ?Stages 1 to 5, with or without kidney disease, indicate chronic kidney disease. Notes: Determination of stages one and two (with eGFR >59mL/min/1.73 m2) requires estimation of kidney damage for at least three months as defined by structural or functional abnormalities of the kidney, manifested by either:Pathological abnormalities or Markers of kidney damage (including abnormalities in the composition of the blood or urine or abnormalities in imaging tests). [facility] with [id number] 06:09:24 Test Item Value Reference Range Interpretation Comments WBC (test code = See_Comment [Automated 0302-2) message] The sy stem which generated this result transmitted reference range : 4.30 - 11.10 10*3/?L. The reference range was not used to interpret this result as normal/abnormal . RBC (test code = See_Comment [Automated 492-0) message] The sy stem which generated this result transmitted reference range : 3.93 - 5.25 10*6/?L. The reference range was not used to interpret this result as normal/abnormal . HGB (test code = 14.3 g/dL 11.6-15.0 718-7) HCT (test code = 41.8 % 35.7-45.2 4544-3) MCV (test code = 90.3 fL 80.6-95.5 787-2) MCH (test code = 30.9 pg 25.9-32.8 785-6) MCHC (test code = 34.2 g/dL 31.6-35.1 786-4) RDW-SD (test code = 44.3 fL 39.0-49.9 33715-7) RDW-CV (test code = 13.4 % 12.0-15.5 788-0) PLT (test code = See_Comment [Automated 777-3) message] The sy stem which generated this result transmitted reference range : 166 - 358 10*3/ ?L. The reference r kendal was not used to interpret this result as normal/abnormal . MPV (test code = 9.5 fL 9.5-12.9 28044-9) NRBC/100 WBC (test See_Comment [Automat ed code = 6376022530) message] The system which generated this result transmitted reference range : 0.0 - 10.0 /100 WBCs. The refer ence range was not u sed to interpret th is result as normal/abnormal . NRBC x10^3 (test code <0.01 See_Comment [Auto mated = 7283897283) message] The s ystem which generated this result transmitted reference range : 10*3/?L. The reference range was not used to interpret this result as normal/abnormal . GRAN MAT (NEUT) % 61.5 % (test code = 770-8) IMM GRAN % (test code 0.30 % = 2578222285) LYMPH % (test code = 31.2 % 736-9) MONO % (test code = 6.5 % 5905-5) EOS % (test code = 0.2 % 713-8) BASO % (test code = 0.3 % 706-2) GRAN MAT x10^3(ANC) 5.29 10*3/uL 1.88-7.09 (test code = 4579671458) IMM GRAN x10^3 (test 0.03 10*3/uL 0.00-0.06 code = 2613003301) LYMPH x10^3 (test code 2.69 10*3/uL 1.32-3.29 = 731-0) MONO x10^3 (test code 0.56 10*3/uL 0.33-0.92 = 742-7) EOS x10^3 (test code = <0.03 0.03-0.39 L 711-2) BASO x10^3 (test code 0.03 10*3/uL 0.01-0.07 = 704-7) Lab Interpretation Abnormal (test code = 40103-8) [facility]EDIM[facility] [id number] 07:13:02 Test Item Value Reference Range Interpretation Comments ESR (test code = See_Comment [Automated message] 9533388253) The system [employer] [employer] generated this result transmitted ref erence range: 0 - 20 m m/HR. The reference r kendal was not used to interpret this result as normal/abnor mal. Lab Interpretation (test Normal code = 14123-4) [facility]. METABOLIC PANEL (62362)2021-03-22 07:13:01 Test Item Value Reference Range Interpretation Comments NA (test code = 140 mmol/L 135-145 9846846166) K (test code = 4.3 mmol/L 3.5-5.0 9983497908) CL (test code = 107 mmol/L 98-108 5974784731) CO2 TOTAL (test code = 25 mmol/L 23-31 9144267815) AGAP (test code = 2-16 3340617061) BUN (test code = 16 mg/dL 7-23 3591012296) GLUCOSE (test code = 120 mg/dL 70-110 H 4093012533) CREATININE (test code = 0.62 mg/dL 0.50-1.04 3238889908) TOTAL BILI (test code = 0.3 mg/dL 0.1-1.3 9850807145) CALCIUM (test code = 9.9 mg/dL 8.6-10.6 8518600956) T PROTEIN (test code = 6.5 g/dL 6.3-8.2 0659960959) ALBUMIN (test code = 4.2 g/dL 3.5-5.0 9535479506) ALK PHOS (test code = 55 U/L 34-122 5024060597) ALTv (test code = 20 U/L 5-35 1742-6) AST(SGOT) (test code = 22 U/L 13-40 2191680571) eGFR (test code = mL/min/1.73m2 6776952292) RYAN (test code = RYAN) Association of Glomerular Filtration Rate (GFR) and Staging of Kidney Disease* + --+ --+ ------+| GFR (mL/min/1.73 m2) ?| With Kidney Damage ?| ?Without Kidney Damage+ --------+ --------+ +| ?>90 ?| ?Stage one ?| ? Normal ?+ ---+ ---+ -------+| ?60-89 ?| ?Stage two ?| ? Decreased GFR ? + --+ --+ ------+| ?30-59 ?| ?Stage three ?| ? Stage three ? + --+ --+ ------+| ?15-29 ?| ?Stage four ? | ? Stage four ?+ ---+ ---+ -------+| ?<15 (or dialysis) ? ?| ?Stage five ? | ? Stage five ?+ ---+ ---+ -------+ *Each stage assumes the associated GFR level has been in effect for at least three months. ?Stages 1 to 5, with or without kidney disease, indicate chronic kidney disease. Notes: Determination of stages one and two (with eGFR >59mL/min/1.73 m2) requires estimation of kidney damage for at least three months as defined by structural or functional abnormalities of the kidney, manifested by either:Pathological abnormalities or Markers of kidney damage (including abnormalities in the composition of the blood or urine or abnormalities in imaging tests). Lab Interpretation Abnormal (test code = 16109-7) [facility] WITH [id number] 06:31:55 Test Item Value Reference Range Interpretation Comments WBC (test code = See_Comment H [Automated 6798-2) message] The system which generated this result transmit emmanuel reference range : 4.30 - 11.10 10*3/?L. The reference range was not used to interpret this result as normal/abnormal . RBC (test code = See_Comment [Automated 238-8) message] The system which generated this result transmit emmanuel reference range : 3.93 - 5.25 10*6/?L. The reference range was not used to interpret this result as normal/abnormal . HGB (test code = 13.8 g/dL 11.6-15.0 718-7) HCT (test code = 40.6 % 35.7-45.2 4544-3) MCV (test code = 91.0 fL 80.6-95.5 787-2) MCH (test code = 30.9 pg 25.9-32.8 785-6) MCHC (test code = 34.0 g/dL 31.6-35.1 786-4) RDW-SD (test code = 43.7 fL 39.0-49.9 94909-1) RDW-CV (test code = 13.2 % 12.0-15.5 788-0) PLT (test code = See_Comment [Automated 777-3) message] The system which generated this result transmit emmanuel reference range : 166 - 358 10*3/ ?L. The reference range was not u sed to interpret th is result as normal/abnormal . MPV (test code = 9.3 fL 9.5-12.9 L 85166-6) NRBC/100 WBC (test See_Comment [Automat ed code = 9446786837) message] The system which generated this result transmit emmanuel reference range : 0.0 - 10.0 /100 WBCs. The reference range was not used to interpret this result as normal/abnormal . NRBC x10^3 (test code <0.01 See_Comment [Auto mated = 6440892802) message] The system which generated this result transmit emmanuel reference range : 10*3/?L. The reference range was not used to interpret this result as normal/abnormal . GRAN MAT (NEUT) % 72.3 % (test code = 770-8) IMM GRAN % (test code 0.70 % = 4639885263) LYMPH % (test code = 20.0 % 736-9) MONO % (test code = 6.7 % 5905-5) EOS % (test code = 0.0 % 713-8) BASO % (test code = 0.3 % 706-2) GRAN MAT x10^3(ANC) 10.58 10*3/uL 1.88-7.09 H (test code = 0294517035) IMM GRAN x10^3 (test 0.10 10*3/uL 0.00-0.06 H code = 0519463985) LYMPH x10^3 (test code 2.92 10*3/uL 1.32-3.29 = 731-0) MONO x10^3 (test code 0.98 10*3/uL 0.33-0.92 H = 742-7) EOS x10^3 (test code = <0.03 0.03-0.39 L 711-2) BASO x10^3 (test code 0.04 10*3/uL 0.01-0.07 = 704-7) Lab Interpretation Abnormal (test code = 51919-5) [facility] [id number] 21:53:34 No acute intrathoracic abnormality.PROCEDURE: XR CHEST 1 VW CLINICAL INDICATION: cough/sob COMPARISON: None FINDINGS: The lungs are partial expanded and clear.No pleural effusion or pneumothorax is seen. The cardiomediastinal silhouette is normal. No acute bony abnormality. [facility], Radiant Results Inft User - 07/19/2020 4:54 PM CDTPROCEDURE: XR CHEST 1 VWCLINICAL INDICATION: cough/sob COMPARISON: NoneFINDINGS:The lungs are partial expanded and clear.No pleural effusion or pneumothorax is seen. The cardiomediastinal silhouette is normal. No acute bony abnormality.IMPRESSIONNo acute intrathoracic abnormality.[facility] [id number] 20:43:00 Test Item Value Reference Range Interpretation Comments POCT PREG (test code = 1605) negative On board controls acceptable with present C Line (test code = 3574) POCT PREG LOT # (test code = 3575) [id number] POCT PREG TEST DATE (test 06/14/2021 code = 3576) Lab Interpretation (test code = Normal 71505-5) [facility]"
--- NOTE | 2021-11-10 03:27 | ER ---
Nurse's Notes [facility] Name: Emy De León Age: 46 yrs Sex: Female : 1975 Arrival Date: 11/10/2021 Time: 00:44 Bed 12 Private MD: Diagnosis: Right shoulder and elbow strain Presentation: 11/10 01:28 Chief complaint: Patient states: was helping move some boxes and tried to catch a box iw that was falling and it pulled her right arm back weird and now her right elbow and shoulder are hurting , happened today. Coronavirus screen: At this time, the client does not indicate any symptoms associated with coronavirus-19. Ebola Screen: Patient negative for fever greater than or equal to 101.5 degrees Fahrenheit, and additional compatible Ebola Virus Disease symptoms Patient denies exposure to infectious person. Patient denies travel to an Ebola-affected area in the 21 days before illness onset. No symptoms or risks identified at this time. Initial Sepsis Screen: Does the patient meet any 2 criteria? No. Patient's initial sepsis screen is negative. Does the patient have a suspected source of infection? No. Patient's initial sepsis screen is negative. Risk Assessment: Do you want to hurt yourself or someone else? Patient reports no desire to harm self or others. Onset of symptoms was November 10, 2021. 01:28 Method Of Arrival: Ambulatory iw 01:28 Acuity: NADIA 4 iw Historical: - Allergies: 01:30 No Known Allergies; iw - Home Meds: 01:30 None [Active]; iw - PMHx: 01:30 Depression; iw - PSHx: 01:30 tubal ligation; iw - Immunization history:: Client reports having NOT received the Covid vaccine. - Social history:: Smoking status: Patient reports the use of cigarette tobacco products, smokes one-half pack cigarettes per day. Vital Signs: 01:28 BP 123 / 61; Pulse 76; Resp 16; Temp 97.0; Pulse Ox 98% on R/A; Weight 104.33 kg; iw Height 5 ft. 1 in. (154.94 cm); Pain 8/10; 01:28 Body Mass Index 43.46 (104.33 kg, 154.94 cm) iw ED Course: 00:44 Patient arrived in ED. ja2 01:30 Triage completed. iw 01:30 Arm band placed on. iw 02:05 Shoulder Right 2 View In Process Unspecified. EDMS 02:05 Elbow Right 3 View XRAY In Process Unspecified. EDMS 03:08 Paul Mendoza MD is Attending Physician. pkl 03:18 Suma Gomez, RN is Primary Nurse. iw Administered Medications: 03:42 Drug: traMADol 50 mg Route: PO; iw Outcome: 03:27 Discharge ordered by . pkl 03:45 Patient left the ED. iw Signatures: Dispatcher [employer] EDMS Paul Mendoza MD MD pkSuma Scherer, RN RN iw Eryn Duarte Corrections: (The following items were deleted from the chart) 01:31 01:28 Pulse 76bpm; Resp 16bpm; Pulse Ox 98% RA; Temp 97.0F; 104.33 kg; Height 5 ft. 1 iw in.; BMI: 43.4; iw
--- NOTE | 2021-11-10 03:28 | EDPHYS ---
Physician Documentation [facility] Name: Emy De León Age: 46 yrs Sex: Female : 1975 Arrival Date: 11/10/2021 Time: 00:44 Bed 12 Private MD: ED Physician Paul Mendoza HPI: 11/10 03:18 This 46 yrs old Female presents to ER via Ambulatory with complaints of Elbow Injury, pkl Shoulder Pain. 03:18 The patient or guardian complains of pain, that is acute. The complaints affect the pkl right shoulder and elbow. Context: resulted from injured trying to catch a falling box. Onset: The symptoms/episode began/occurred just prior to arrival. Historical: - Allergies: 01:30 No Known Allergies; iw - Home Meds: :30 None [Active]; iw - PMHx: :30 Depression; iw - PSHx: 01:30 tubal ligation; iw - Immunization history:: Client reports having NOT received the Covid vaccine. - Social history:: Smoking status: Patient reports the use of cigarette tobacco products, smokes one-half pack cigarettes per day. ROS: 03:18 Eyes: Negative for injury, pain, redness, and discharge, ENT: Negative for injury, pkl pain, and discharge, Neck: Negative for injury, pain, and swelling, Cardiovascular: Negative for chest pain, palpitations, and edema, Respiratory: Negative for shortness of breath, cough, wheezing, and pleuritic chest pain, Abdomen/GI: Negative for abdominal pain, nausea, vomiting, diarrhea, and constipation, Back: Negative for injury and pain, : Negative for injury, bleeding, discharge, and swelling, Skin: Negative for injury, rash, and discoloration, Neuro: Negative for headache, weakness, numbness, tingling, and seizure. 03:18 MS/extremity: Positive for pain, of the right shoulder and elbow. Exam: 03:18 Head/Face: Normocephalic, atraumatic. Eyes: Pupils equal round and reactive to light, pkl extra-ocular motions intact. Lids and lashes normal. Conjunctiva and sclera are non-icteric and not injected. Cornea within normal limits. Periorbital areas with no swelling, redness, or edema. ENT: Nares patent. No nasal discharge, no septal abnormalities noted. Tympanic membranes are normal and external auditory canals are clear. Oropharynx with no redness, swelling, or masses, exudates, or evidence of obstruction, uvula midline. Mucous membranes moist. Neck: Trachea midline, no thyromegaly or masses palpated, and no cervical lymphadenopathy. Supple, full range of motion without nuchal rigidity, or vertebral point tenderness. No Meningismus. Chest/axilla: Normal chest wall appearance and motion. Nontender with no deformity. No lesions are appreciated. Cardiovascular: Regular rate and rhythm with a normal S1 and S2. No gallops, murmurs, or rubs. Normal PMI, no JVD. No pulse deficits. Respiratory: Lungs have equal breath sounds bilaterally, clear to auscultation and percussion. No rales, rhonchi or wheezes noted. No increased work of breathing, no retractions or nasal flaring. Abdomen/GI: Soft, non-tender, with normal bowel sounds. No distension or tympany. No guarding or rebound. No evidence of tenderness throughout. Back: No spinal tenderness. No costovertebral tenderness. Full range of motion. Skin: Warm, dry with normal turgor. Normal color with no rashes, no lesions, and no evidence of cellulitis. Neuro: Awake and alert, GCS 15, oriented to person, place, time, and situation. Cranial nerves II-XII grossly intact. Motor strength 5/5 in all extremities. Sensory grossly intact. Cerebellar exam normal. Normal gait. 03:18 Musculoskeletal/extremity: Extremities: grossly normal except: noted in the right shoulder and elbow: pain. Vital Signs: 01:28 BP 123 / 61; Pulse 76; Resp 16; Temp 97.0; Pulse Ox 98% on R/A; Weight 104.33 kg; iw Height 5 ft. 1 in. (154.94 cm); Pain 8/10; 01:28 Body Mass Index 43.46 (104.33 kg, 154.94 cm) iw MDM: 03:08 Patient medically screened. pkl 03:18 Data reviewed: vital signs, nurses notes, radiologic studies, plain films. ED course: pkl Discussed imaging studies with patient. Advised to follow up with PCP in 2 to 3 days. Patient understood instructions. 11/10 01:31 Order name: Shoulder Right (2 View) XRAY iw 11/10 01:31 Order name: Elbow Right 3 View XRAY 11/10 01:32 Order name: Shoulder Right 2 View EDIN 11/10 03:17 Order name: Arm-Sling; Complete Time: 03:42 pkl Administered Medications: 03:42 Drug: traMADol 50 mg Route: PO; Disposition Summary: 11/10/21 03:27 Discharge Ordered Location: Home pkl Problem: new pkl Symptoms: have improved pkl Condition: Stable pkl Diagnosis - Right shoulder and elbow strain pkl Followup: pkl - With: Private Physician - When: 2 - 3 days - Reason: Re-evaluation by your physician Discharge Instructions: - Discharge Summary Sheet pkl Forms: - Medication Reconciliation Form pkl - Thank You Letter pkl - Antibiotic Education pkl - Prescription Opioid Use pkl Prescriptions: - Ultram 50 mg Oral Tablet - take 1 tablet by ORAL route every 8 hours As needed; 15 tablet; Refills: 0, pkl Product Selection Permitted Signatures: Dispatcher [employer] Paul Melendez MD MD pkl Suma Gomez RN RN
[2021-11-10] MEDS ORDERED: TRAMADOL HCL 50 MG TAB ONE (03:40)
[2021-11-10 03:50] VITALS: BP 123/61; TEMP 97; O2SAT 98
--- NOTE | 2021-11-10 07:38 | RAD REPORT ---
EXAM DESCRIPTION: RAD - Elbow Right 3 View - 11/10/2021 2:05 am CLINICAL HISTORY: PAIN COMPARISON: No comparisons FINDINGS: Positioning is not optimal. No fracture is identified and no elevated posterior fat pad. T here is no dislocation or periosteal reaction noted. No foreign body or other soft tissue abnormality . Skin fold artifacts overlie the distal humerus. IMPRESSION: Positioning was not optimal on this portable study. No dislocation or periosteal reactio n is present. No fracture is confirmed. Repeat imaging in 5-7 days would be recommended if the patient continues to have symptoms concerning for occult fracture.
--- NOTE | 2021-11-10 07:43 | RAD REPORT ---
EXAM DESCRIPTION: Shoulder Right 2 View - 11/10/2021 2:05 am CLINICAL HISTORY: PAIN COMPARISON: No comparisons TECHNIQUE: Portable internal and external rotation views obtained. FINDINGS: There is no fracture or dislocation. AC joint positioning was not optimal but no dislocat ion can be confirmed. No clavicle fracture seen. Acromial humeral joint space is normal. There is a d ownward tilting of the lateral aspect of the acromion. Scapula detail is limited but no gross abnorma lity seen. IMPRESSION: Limited portable study with no fracture, dislocation or acute finding confirmed.
== END 2021-11-10 03:45 | disposition home or self-care (01) ==
LOC: ER 00:38
DX: S46.911A Strain of unspecified muscle, fascia and tendon at shoulder and upper arm level, right arm, initial encounter (principal); F17.210 Nicotine dependence, cigarettes, uncomplicated
CPT/HCPCS: 99283

== ENCOUNTER 2025-03-26 20:42 | Emergency (ER) | payer SELFPAY ==
--- OUTSIDE RECORDS SUMMARY | 2025-03-26 20:46 | XMS REPORT | Continuity of Care Document ---
Author Name Unknown Address [address] [facility] [address] [place] [address] [facility] [place] Address [address] [facility] [place] [address] Care Team Providers Care Brush Polisher Name Role Phone Ann LYLES, Suad Primary Care Physician [phone] ELBERT DUEÑAS Attending Clinician Unavailable Elbert Patrick Attending Clinician [phone] BENNIE HALEY Attending Clinician Unavailabl Henri Gupta DO Attending Clinician [phone] Doctor Unassigned, [facility] Attending Clinician U raffi Strauss RN, Miriam Pichardo Attending Clinician UnavailAkshat Castro Attending Clinician [phone] Payers Payer Name Policy Type Policy Number Effective Date Expirati on Date Source HIM ROSA FROM [facility] [id number] 2018 00:00:00 Problems Condition Name Condition Details Condition Category Status Onset Date Resolution Date Last Treatment Date Treating Clinician Comments Source No known active problems No known active problems Disease [facility] Allergies, Adverse Reactions, Alerts Allergy Name Allergy Type Status Severity Reaction(s) Onset Date Inactive Date Treating Clinician Comments Source NO KNOWN ALLERGIE S Drug Class Active [facility] Social History Social Habit Start Date Stop Date Quantity Comments Source Sexual orientation [facility] Exposure to SARS-CoV-2 (event) 2022-03-21 00:00:00 2022-03-31 17:36:00 Not sure [facility] Sex Assigned At 1975 00:00:00 1975 00:00:00 [facility] Smoking Status Start Date Stop Date Source Heavy Tobacco Smoker [facility] Tobacco smoking consumption unknown [facility] Medications Ordered Medication Name Filled Medication Name Start Date Stop Date Current Medication? Ordering Clinician Indication Dosage Frequency Signature (SIG) Comments Components Source ibuprofen (IBU) tablet 800 mg 04-01 00:15: 00 03-31 23:32 :00 No 800mg 800 mg, Oral, ONCE, 1 dose, On Wed03/31/22 at 1915, NILO [facility] ibuprofen 800 mg tablet 03-31 00:00: 00 Yes [id number] 800mg Take 1 tablet by mouth every 8 (eight) hours as needed for Pain (scale 4-6). [facility] methocarbam oL 750 mg tablet 03-31 00:00: 00 Yes [id number] 750mg Take 1 tablet by mouth 4 (four) times daily as needed for Pain (scale 4-6). [facility] ketorolac (TORADOL) injection 60 mg 05-20 06:15: 00 05-20 05:35 :00 No 60mg 60 mg, Intramuscu lar, ONCE, 1 dose, Wed05/20/21 at 0115, NILO
Fa culty member approving Restricted medication : EMERGENCY ROOM, [facility] ibuprofen 800 mg tablet 05-20 00:00: 00 03-31 00:00 :00 No [id number] 800mg Take 1 tablet by mouth every 8 (eight) hours as needed for Pain (scale 4-6). [facility] acetaminoph en-codeine 300-30 mg tablet 05-20 00:00: 00 05-28 04:59 :00 No [id number] 1{tbl} Take 1 tablet by mouth every 6 (six) hours as needed for Pain (scale 7-10) for up to 7 days. Indication s: acute pain [facility] HYDROcodone -acetaminop hen (NORCO) 10-325 mg tablet 1 tablet 03-22 06:45: 00 03-22 05:58 :00 No 1{tbl} 1 tablet, Oral, ONCE, 1 dose, 03/22/21 at 0145, Routine [facility] methylPREDN ISolone sodium succinate (SOLU-MEDRO L) injection 1,000 mg 03-22 06:45: 00 03-22 06:04 :00 No 1000mg 1,000 mg, Intravenou s, ONCE, 1 dose, 03/22/21 at 0145, NILO [facility] carBAMazepi ne 100 mg 12 hr capsule 03-22 00:00: 00 Yes [id number] 100mg Take 1 capsule by mouth 2 (two) times daily. [facility] ondansetron (ZOFRAN-ODT ) disintegrat ing tablet 4 mg 07-19 21:15: 00 07-19 20:43 :00 No 4mg 4 mg, Oral, ONCE, 1 dose, 07/19/20 at 1615, Routine [facility] ibuprofen (IBU) tablet 800 mg 07-19 21:15: 07-19 20:44 :00 No 800mg 800 mg, Oral, ONCE, 1 dose, Wed07/19/20 at 1615, NILO [facility] albuterol 90 mcg/actuati on inhaler 07-19 00:00: 00 Yes [id number] 2{puff} Inhale 2 Puffs every 4 (four) hours as needed for Wheezing or Shortness of Breath. [facility] benzonatate 100 mg capsule 07-19 00:00: 00 Yes [id number] 100mg Take 1 capsule by mouth 3 (three) times daily as needed for Cough. [facility] ondansetron (ZOFRAN ODT) 4 mg disintegrat ing tablet 07-19 00:00: 00 Yes [id number] 4mg Take 1 tablet by mouth every 8 (eight) hours as needed for Nausea and Vomiting (N/V). [facility] ibuprofen 800 mg tablet 9- 00:00: 00 03-31 00:00 :00 No [id number] 800mg Take 1 tablet by mouth 3 (three) times daily with meals. [facility] Vital Signs Vital Name Observation Time Observation Value Comments Myriam alexis Body Weight 2024-12-28 00:00:00 3491 [oz_av] [facility] BMI (Body Mass Index) 2024-12-28 00:00:00 39.9 kg/m2 [facility] Height 2024-12-28 00:00:00 62 [in_i] [facility] BP Diastolic 2024-12-28 00:00:00 82 mm[Hg] [facility] BP Systolic 2024-12-28 00:00:00 120 mm[Hg] [facility] Systolic blood pressure 2022-03-31 22:37:00 177 mm[Hg] [facility] Diastolic blood pressure 2022-03-31 22:37:00 87 mm[Hg] [facility] Heart rate 2022-03-31 22:37:00 82 /min [facility] Body temperature 2022-03-31 22:37:00 37.56 Bee [facility] Respiratory rate 2022-03-31 22:37:00 18 /min [facility] Body height 2022-03-31 22:37:00 157.5 cm [facility] Body weight 2022-03-31 22:37:00 104.327 kg [facility] BMI 2022-03-31 22:37:00 42.07 kg/m2 [facility] Oxygen saturation in Arterial blood by Pulse oximetry 2022-03-31 22:37:00 98 /min [facility] Systolic blood pressure 2021-05-20 09:00:00 125 mm[Hg] [facility] Diastolic blood pressure 2021-05-20 09:00:00 67 mm[Hg] [facility] Heart rate 2021-05-20 09:00:00 65 /min [facility] Respiratory rate 2021-05-20 09:00:00 22 /min [facility] Oxygen saturation in Arterial blood by Pulse oximetry 2021-05-20 09:00:00 96 /min [facility] Body temperature 2021-05-20 05:48:50 36.83 Bee [facility] Body weight 2021-05-20 04:38:00 127.007 kg [facility] BMI 2021-05-20 04:38:00 51.21 kg/m2 [facility] Systolic blood pressure 2021-03-22 08:13:39 115 mm[Hg] [facility] Diastolic blood pressure 2021-03-22 08:13:39 66 mm[Hg] [facility] Heart rate 2021-03-22 08:13:39 69 /min [facility] Respiratory rate 2021-03-22 08:13:39 17 /min [facility] Oxygen saturation in Arterial blood by Pulse oximetry 2021-03-22 08:13:39 97 /min [facility] Body temperature 2021-03-22 03:23:00 36.78 Bee [facility] Body weight 2021-03-22 03:23:00 107.956 kg [facility] BMI 2021-03-22 03:23:00 43.53 kg/m2 [facility] Systolic blood pressure 2020-07-19 22:50:00 122 mm[Hg] [facility] Diastolic blood pressure 2020-07-19 22:50:00 80 mm[Hg] [facility] Heart rate 2020-07-19 22:50:00 76 /min [facility] Respiratory rate 2020-07-19 22:50:00 18 /min [facility] Oxygen saturation in Arterial blood by Pulse oximetry 2020-07-19 22:50:00 96 /min [facility] Body temperature 2020-07-19 18:32:00 35.67 Bee [facility] Body height 2020-07-19 18:32:00 157.5 cm [facility] Body weight 2020-07-19 18:32:00 104.327 kg [facility] BMI 2020-07-19 18:32:00 42.07 kg/m2 [facility] Procedures Procedure Date / Time Performed Performing Clinician Source POCT TEST 2022-03-31 23:15:00 Jane Dueñas [facility] URINALYSIS 2022-03-31 22:44:00 Elbert Dueñas [facility] CONSENT/REFUSAL FOR DIAGNOSIS AND TREATMENT 2022-03-31 22:34:22 Doctor Unassigned, [facility] NOTICE OF PRIVACY PRACTICES 2021-05-20 06:34:01 Doctor Unassigned, [facility] TROPONIN I 2021-05-20 06:26:00 Elbert Dueñas [facility] HEPATIC FUNCTION PANEL (02772) (ALB,T.PRO,BILI T,BU/BC,ALT,AST,ALK PHOS) 2021-05-20 06:26:00 Elbert Dueñas [facility] BASIC METABOLIC PANEL (NA, K, CL, CO2, GLUCOSE, BUN, CREATININE, CA) 2021-05-20 06:26:00 Elbert Dueñas [facility] N-TERMINAL PRO-BNP 2021-05-20 06:26:00 Carla Dueñas [facility] XR CHEST 1 VW 2021-05-20 05:54:06 Elbert Dueñas [facility] CBC WITH DIFF 2021-05-20 05:34:00 Elbert Dueñas [facility] CONSENT/REFUSAL FOR DIAGNOSIS AND TREATMENT 2021-05-20 04:29:34 Doctor Unassigned, [facility] CT HEAD WO CONTRAST 2021-03-22 06:22:21 Katy Lang [facility] COMP. METABOLIC PANEL (26060) 2021-03-22 05:59:00 Henri Lang [facility] SEDIMENTATION RATE 2021-03-22 05:59:00 Henri Lang [facility] CBC WITH DIFF 2021-03-22 05:59:00 Henri Lang [facility] NOTICE OF PRIVACY PRACTICES 2021-03-22 03:14:43 Doctor Unassigned, [facility] CONSENT/REFUSAL FOR DIAGNOSIS AND TREATMENT 2021-03-22 03:13:47 Doctor Unassigned, [facility] XR CHEST 1 VW 2020-07-19 21:42:00 [facility] POCT TEST 2020-07-19 20:43:00 Akshat Tidwell [facility] NOTICE OF PRIVACY PRACTICES 2020-07-19 18:26:22 Doctor Unassigned, [facility] CONSENT/REFUSAL FOR DIAGNOSIS AND TREATMENT 2020-07-19 18:26:03 Doctor Unassigned, [facility] Ligation of Bilateral Fallopian Tubes 2000-02-28 00:00:00 [facility] Adenoid Excision [facility] Encounters Start Date/Time End Date/Time Encounter Type Admission Type Attending [facility] Care Department Encounter ID Source 2024-12-28 00:00:00 2024-12-28 00:00:00 Tiff Worrell PA-C: [address] [place] [address], [address], [place] [address] , [facility]. [facility] [id number] [facility] 2022-03-31 17:45:00 2022-03-31 18:39:00 Emergency X PORTIA DUEÑASANNE [facility] ERT [id number] [facility] 2022-03-31 17:45:00 2022-03-31 18:39:00 Emergency Dueñas, [facility] [id number] 350.1.13.10 4.2.7.2.686 [id number] [facility] 2021-05-19 23:38:00 2021-05-20 04:14:00 Emergency [facility] [id number] 350.1.13.10 4.2.7.2.686 [id number] [facility] 2021-05-19 23:27:00 2021-05-19 23:27:00 Emergency X [facility] ERT [id number] [facility] 2021-04-09 13:24:00 2021-04-09 18:34:00 Emergency [address]AJAS [address] [facility] 2021-03-21 22:20:00 2021-03-22 03:17:00 Emergency Henri Lang [facility] [id number] 350.1.13.10 4.2.7.2.686 [id number] [facility] 2021-03-21 22:20:00 2021-03-21 22:20:00 Emergency X [facility] ERT [id number] [facility] 2020-07-21 00:00:00 2020-07-21 00:00:00 Patient Secure Msg Doctor Unassigned, [facility] 1.2840.114 350.1.13.10 4.2.7.2.686 [id number] [facility] 2020-07-21 00:00:00 2020-07-21 00:00:00 Letter (Out) Miriam Strauss [facility] 1.2840.114 350.1.13.10 4.2.7.2.686 [id number] [facility] 2020-07-19 13:32:00 2020-07-19 17:58:00 Emergency Akshat Tidwell [facility] 1.2840.114 350.1.13.10 4.2.7.2.686 [id number] [facility] 2020-07-19 13:28:00 2020-07-19 13:28:00 Emergency X [facility] ERT [id number] [facility] 2020-07-19 00:00:00 2020-07-19 00:00:00 Orders Only Doctor Unassigned, [facility] [id number] 350.1.13.10 4.2.7.2.686 [id number] [facility] Results Test Description Test Time Test Comments Results Result Co mments Source [facility] [id number] 08:34:06* Test Item Value Reference Range Interpretation Comments TROPONIN I (test code = 6864446928) 0.010 ng/mL See_Comment [Automated message] The system which generated this result transmitted reference range: <=0.034. The reference range was not used to interpret this result as normal/abnormal. RYAN (test code = RYAN) Reference (Normal) [...] to patient's use of biotin. Lab Interpretation (test code = 58170-7) Normal [facility] [id number] 08:22:33* Test Item Value Reference Range Interpretation Comme nts NT-proBNP (test code = 9528290286) 72 pg/mL See_Comment [Automated message] The system which generated this result transmitted reference range: <=125. The reference range was not used to interpret this result as normal/abnormal. RYAN (test code = RYAN) Biotin has been reported to cause a negative bias, interpret results relative to patient's use of biotin. Lab Interpretation (test code = 21326-3) Normal [facility] (ALB, T.PRO, BILI T, BU/BC, ALT, AST, ALK PHOS)2021-05-20 07:48:48* Test Item Value Reference Range Interpretation Comme nts TOTAL BILI (test code = 4524987073) 0.5 mg/dL 0.1-1.1 BILI UNCON (test code = 3733957591) 0.3 mg/dL 0.1-1.1 BILI CONJ (test code = 9644385606) 0.0 mg/dL 0.0-0.3 T PROTEIN (test code = 3191138294) 6.7 g/dL 6.3-8.2 ALBUMIN (test code = 3294761725) 4.1 g/dL 3.5-5.0 ALK PHOS (test code = 7541882050) 56 U/L 34-122 ALTv (test code = 1742-6) 26 U/L 5-35 AST(SGOT) (test code = 6828710443) 39 U/L 13-40 Lab Interpretation (test cod e = 40168-0) Normal [facility] Metabolic Panel (NA, K, CL, CO2, GLUCOSE, BUN, CREATININE, CA)2021-05-20 07:14:09* Test Item Value Reference Range Interpretation Comme nts NA (test code = 6440034032) 136 mmol/L 135-145 K (test code = 5490746922) 4.5 mmol/L 3.5-5.0 CL (test code = 9663535150) 104 mmol/L 98-108 CO2 TOTAL (test code = 1470667286) 26 mmol/L 23-31 AGAP (test code = 4903566712) 2-16 BUN (test code = 0342630971) 16 mg/dL 7-23 GLUCOSE (test code = 1602421200) 93 mg/dL 70-110 CREATININE (test code = 1719477097) 0.81 mg/dL 0.50-1.04 CALCIUM (test code = 6095619593) 9.1 mg/dL 8.6-10.6 eGFR (test code = 7568334582) mL/min/1.73m2 RYAN (test code = RYAN) Association of [...] or urine or abnormalities in imaging tests). [facility] [id number] 06:09:24* Test Item Value Reference Range Interpretation Comme nts WBC (test code = 6690-2) See_Comment [Liquid Grids] The system which generated this result transmitted reference range: 4.30 - 11.10 10*3/?L. The reference range was not used to interpret this result as normal/abnormal. RBC (test code = 789-8) See_Comment [Liquid Grids] The system which generated this result transmitted reference range: 3.93 - 5.25 10*6/?L. The reference range was not used to interpret this result as normal/abnormal. HGB (test code = 718-7) 14.3 g/dL 11.6-15.0 HCT (test code = 4544-3) 41.8 % 35.7-45.2 MCV (test code = 787-2) 90.3 fL 80.6-95.5 MCH (test code = 785-6) 30.9 pg 25.9-32.8 MCHC (test code = 786-4) 34.2 g/dL 31.6-35.1 RDW-SD (test code = 50823-1) 44.3 fL 39.0-49.9 RDW-CV (test code = 788-0) 13.4 % 12.0-15.5 PLT (test code = 777-3) See_Comment [Automated messa ge] The system which generated this result transmitted reference range: 166 - 358 10*3/?L. The reference range was not used to interpret this result as normal/abnormal. MPV (test code = 07058-0) 9.5 fL 9.5-12.9 NRBC/100 WBC (test code = 5607806413) See_Comment [Automated me ssage] The system which generated this result transmitted reference range: 0.0 - 10.0 /100 WBCs. The reference range was not used to interpret this result as normal/abnormal. NRBC x10^3 (test code = 2037055477) <0.01 See_Comment [Automated messa ge] The system which generated this result transmitted reference range: 10*3/?L. The reference range was not used to interpret this result as normal/abnormal. GRAN MAT (NEUT) % (test code = 770-8) 61.5 % IMM GRAN % (test code = 8281530348) 0.30 % LYMPH % (test code = 736-9) 31.2 % MONO % (test code = 5905-5) 6.5 % EOS % (test code = 713-8) 0.2 % BASO % (test code = 706-2) 0.3 % GRAN MAT x10^3(ANC) (test code = 4535960030) 5.29 10*3/uL 1.88-7.09 IMM GRAN x10^3 (test code = 5817799169) 0.03 10*3/uL 0.00-0.06 LYMPH x10^3 (test code = 731-0) 2.69 10*3/uL 1.32-3.29 MONO x10^3 (test code = 742-7) 0.56 10*3/uL 0.33-0.92 EOS x10^3 (test code = 711-2) <0.03 0.03-0.39 L BASO x10^3 (test code = 704-7) 0.03 10*3/uL 0.01-0.07 Lab Interpretation (test code = 19165-9) [facility]normal [facility] [id number] 07:13:02* Test Item Value Reference Range Interpretation Comme nts ESR (test code = 8246280164) See_Comment [Automated messa ge] The system which generated this result transmitted reference range: 0 - 20 mm/HR. The reference range was not used to interpret this result as normal/abnormal. Lab Interpretation (test code = 55110-9) Normal [facility]. METABOLIC PANEL (20909)2021-03-22 07:13:01* Test Item Value Reference Range Interpretation Comme nts NA (test code = 3864853719) 140 mmol/L 135-145 K (test code = 8445759790) 4.3 mmol/L 3.5-5.0 CL (test code = 2365003328) 107 mmol/L 98-108 CO2 TOTAL (test code = 0541388757) 25 mmol/L 23-31 AGAP (test code = 4071631282) 2-16 BUN (test code = 0980484125) 16 mg/dL 7-23 GLUCOSE (test code = 2496562901) 120 mg/dL 70-110 H CREATININE (test code = 7338895158) 0.62 mg/dL 0.50-1.04 TOTAL BILI (test code = 0423083452) 0.3 mg/dL 0.1-1.1 CALCIUM (test code = 4121578461) 9.9 mg/dL 8.6-10.6 T PROTEIN (test code = 0755600957) 6.5 g/dL 6.3-8.2 ALBUMIN (test code = 7184318109) 4.2 g/dL 3.5-5.0 ALK PHOS (test code = 3127013885) 55 U/L 34-122 ALTv (test code = 1742-6) 20 U/L 5-35 AST(SGOT) (test code = 9647940741) 22 U/L 13-40 eGFR (test code = 6276010089) mL/min/1.73m2 RYAN (test code = RYAN) Association of [...] or abnormalities in imaging tests). Lab Interpretation (test code = 85312-5) [facility] [id number] 06:31:55* Test Item Value Reference Range Interpretation Comme nts WBC (test code = 6690-2) See_Comment H [Automated message] The system which generated this result transmitted reference range: 4.30 - 11.10 10*3/?L. The reference range was not used to interpret this result as normal/abnormal. RBC (test code = 789-8) See_Comment [Automated message] The system which generated this result transmitted reference range: 3.93 - 5.25 10*6/?L. The reference range was not used to interpret this result as normal/abnormal. HGB (test code = 718-7) 13.8 g/dL 11.6-15.0 HCT (test code = 4544-3) 40.6 % 35.7-45.2 MCV (test code = 787-2) 91.0 fL 80.6-95.5 MCH (test code = 785-6) 30.9 pg 25.9-32.8 MCHC (test code = 786-4) 34.0 g/dL 31.6-35.1 RDW-SD (test code = 54958-7) 43.7 fL 39.0-49.9 RDW-CV (test code = 788-0) 13.2 % 12.0-15.5 PLT (test code = 777-3) See_Comment [Automated message] The system which generated this result transmitted reference range: 166 - 358 10*3/?L. The reference range was not used to interpret this result as normal/abnormal. MPV (test code = 04128-8) 9.3 fL 9.5-12.9 L NRBC/100 WBC (test code = 1352389002) See_Comment [Automated message] The system which generated this result transmitted reference range: 0.0 - 10.0 /100 WBCs. The reference range was not used to interpret this result as normal/abnormal. NRBC x10^3 (test code = 4402316233) <0.01 See_Comment [Automated message] The system which generated this result transmitted reference range: 10*3/?L. The reference range was not used to interpret this result as normal/abnormal. GRAN MAT (NEUT) % (test code = 770-8) 72.3 % IMM GRAN % (test code = 7978235353) 0.70 % LYMPH % (test code = 736-9) 20.0 % MONO % (test code = 5905-5) 6.7 % EOS % (test code = 713-8) 0.0 % BASO % (test code = 706-2) 0.3 % GRAN MAT x10^3(ANC) (test code = 9350022392) 10.58 10*3/uL 1.88-7.09 H IMM GRAN x10^3 (test code = 2332006532) 0.10 10*3/uL 0.00-0.06 H LYMPH x10^3 (test code = 731-0) 2.92 10*3/uL 1.32-3.29 MONO x10^3 (test code = 742-7) 0.98 10*3/uL 0.33-0.92 H EOS x10^3 (test code = 711-2) <0.03 0.03-0.39 L BASO x10^3 (test code = 704-7) 0.04 10*3/uL 0.01-0.07 Lab Interpretation (test code = 21111-0) [facility]normal [facility] 1 [id number] 21:53:34No acute intrathoracic abnormality.PROCEDURE: XR CHEST 1 VW CLINICAL INDICATION: cough/sob COMPARISON: None FINDINGS: The lungs are partial expanded and clear.No pleural effusion or pneumothorax is seen. The cardiomediastinal silhouette is normal. No acute bony abnormality. [facility], Radiant Results Inft User - 07/19/2020 4:54 PM CDTPROCEDURE: XR CHEST 1 VWCLINICAL INDICATION: cough/sob COMPARISON: No neFINDINGS:The lungs are partial expanded and clear.No pleural effusion or pneumothorax is seen. The cardiomediastinal silhouette is normal. No acute bony abnormality.IMPRESSIONNo acute intrathoracicabnormality.[facility] [id number] 20:43:00* Test Item Value Reference Range Interpretation Comme nts POCT PREG (test code = 1605) negative On board controls acceptable with C Line (test code = 3574) present POCT PREG LOT # (test code = 3575) [id number] POCT PREG TEST DATE ( test code = 3576) 06/14/2021 Lab Interpretation (test cod e = 37733-2) Normal [facility]"
[2025-03-26] MEDS ORDERED: methocarbamoL 750 MG TAB ONE (21:37)
--- NOTE | 2025-03-26 22:01 | RAD REPORT ---
Exam:Foot Left 3 View CLINICAL HISTORY: Left foot pain FINDINGS: No fracture or dislocation seen. Mild hallux valgus deformity. Large plantar calcaneal spur
--- NOTE | 2025-03-26 22:01 | RAD REPORT ---
Exam:Ankle Left 3 View HISTORY: left ankle pain FINDINGS: No fracture or dislocation is seen
--- NOTE | 2025-03-26 22:48 | EDPHYS ---
[facility] Name: Emy De León Age: 49 yrs Sex: Female : 1975 Arrival Date: 03/26/2025 Time: 20:42 Bed DX3 Private MD: ED Physician Kingston Arellano HPI: 03/26 20:45 This 49 yrs old Female presents to ER via Unassigned with complaints of Foot sp4 Pain - left. 03/27 20:14 Patient presents with acute foot pain on the left side. 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 Denied any sprain or other acute injury.. [place]: 03/26 21:07 LMP 02/27/2025, unknown dd2 Historical: - Allergies: 21:07 No Known Allergies; dd2 - PMHx: 21:07 Depression; dd2 - PSHx: 21:07 tubal ligation; dd2 - Immunization history:: Adult Immunizations up to date. - Infectious Disease History:: Denies. - Social history:: Smoking status: Patient reports the use of cigarette tobacco products, smokes one-half pack cigarettes per day. - Family history:: not pertinent. ROS: 03/27 20:14 Constitutional: Negative for fever, chills, and weight loss, positive for left foot sp4 pain All other systems are negative, Exam: 20:14 Constitutional: This is a well developed, well nourished patient who is awake, alert, sp4 and in no acute distress. Head/Face: Normocephalic, atraumatic. Eyes: Pupils equal round and reactive to light, extra-ocular motions intact. Lids and lashes normal. Conjunctiva and sclera are not injected. Cornea within normal limits. Periorbital areas with no swelling, redness, or edema. ENT: Nares patent. No nasal discharge, no septal abnormalities noted. Tympanic membranes are normal and external auditory canals are clear. Oropharynx with no redness, swelling, or masses, exudates, or evidence of obstruction, uvula midline. Mucous membranes moist. Neck: Trachea midline, no thyromegaly or masses palpated, and no cervical lymphadenopathy. Supple, full range of motion without nuchal rigidity, or vertebral point tenderness. Chest/axilla: Normal chest wall appearance and motion. Nontender with no deformity. No lesions are appreciated. Cardiovascular: Regular rate and rhythm with a normal S1 and S2. No gallops, murmurs, or rubs. Normal PMI, no JVD. No pulse deficits. Respiratory: Lungs have equal breath sounds bilaterally, clear to auscultation and percussion. No rales, rhonchi or wheezes noted. No increased work of breathing, no retractions or nasal flaring. Abdomen/GI: Soft, with normal bowel sounds. No distension or tympany. No guarding or rebound. No evidence of tenderness throughout. Back: No spinal tenderness. No costovertebral tenderness. Skin: Warm, dry with normal turgor. Normal color with no rashes, no lesions, and no evidence of cellulitis. MS/ Extremity: Pulses equal, no cyanosis. Neurovascular intact. Full, normal range of motion. Neuro: Awake and alert, GCS 15, oriented to person, place, time, and situation. Cranial nerves II-XII grossly intact. Motor strength 5/5 in all extremities. Sensory grossly intact. Psych: Awake, alert, with orientation to person, place and time. Behavior, mood, and affect are within normal limits Vital Signs: 03/26 21:05 BP 142 / 78; Pulse 67; Resp 16; Temp 98.7; Pulse Ox 98% on R/A; Weight 93.89 kg; Height dd2 5 ft. 1 in. ; Pain 7/10; 21:05 Body Mass Index 39.11 (93.89 kg, 154.94 cm) dd2 21:05 Pain Scale: Adult dd2 [place] Coma Score: 03/27 20:14 Eye Response: spontaneous(4). Motor Response: obeys commands(6). Verbal Response: sp4 oriented(5). Total: 15. Procedures: 20:14 Splinting: Splint applied to left nicholson, anterior aspect of left ankle and dorsum of sp4 left foot using Ortho 3D boot, applied by myself. Examined by me, post splint application: neurovascular intact, 2+ distal pulses palpable, brisk capillary refill noted, Patient tolerated well, Advised Ortho boot for the next 2 weeks. MDM: 03/26 21:05 Medical Screening Exam initiated sp4 03/27 20:15 Differential diagnosis: fracture, sprain, foreign body, arthritis, gout, cellulitis. sp4 Data reviewed: vital signs, nurses notes, radiologic studies, plain films. Consideration of Admission/Observation Escalation of care including admission/observation considered. ED course: Ortho boot was applied to the left lower extremity. Advised to wear Ortho boot for the next 2 weeks.. 03/26 21:29 Order name: Foot Left 3 View XRAY; Complete Time: 22:41 sp4 03/26 21:29 Order name: Ankle Left 3 View XRAY; Complete Time: 22:41 sp4 Administered Medications: 03/26 21:47 Drug: Methocarbamol PO 1500 mg PO once Route: PO; vc1 23:11 Follow up: Response: No adverse reaction; Marked relief of symptoms; Pain is decreased vc1 Disposition: 03/27 20:16 Chart complete. sp4 Disposition Summary: 03/26/25 22:48 Discharge Ordered Problem: new sp4 Symptoms: have improved sp4 Condition: Stable sp4 Diagnosis - Sprain of tarsometatarsal ligament of left foot sp4 Followup: sp4 - With: Private Physician - When: 7 - 10 days - Reason: Recheck today's complaints Discharge Instructions: - Discharge Summary Sheet sp4 - Foot Sprain sp4 Forms: - Patient Portal Instructions sp4 Prescriptions: - meloxicam 7.5 mg Oral tablet - take 1 tablet ORAL route every 12 hours PRN pain; 60 tablet; Refills: 0, sp4 Product Selection Permitted - methocarbamol 750 mg Oral tablet - take 2 tablets ORAL route every 8 hours for 10 days PRN pain; 60 tablet; sp4 Refills: 0, Product Selection Permitted Signatures: Dispatcher [employer] EDJenna Rangel RN RN vc1 Kingston Arellano MD MD sp4 CHRISTI BENTLEY RN RN dd2 Corrections: (The following items were deleted from the chart) 03/26 21:29 21:29 Ankle Left 3 View+RAD.[email or web address] ordered. EDMS EDMS
--- NOTE | 2025-03-26 22:48 | ER ---
Nurse's Notes [facility] Name: Emy De León Age: 49 yrs Sex: Female : 1975 Arrival Date: 03/26/2025 Time: 20:42 Bed DX3 Private MD: Diagnosis: Sprain of tarsometatarsal ligament of left foot Presentation: 03/26 21:05 Chief complaint: Patient states: "FIRE BURNING" PAIN TO TOP OF THE LEFT FOOT WITH SOFT dd2 KNOT. PT REPORTS SHE NOTICED AFTER WORK. Coronavirus screen: At this time, the client does not indicate any symptoms associated with coronavirus-19. Ebola Screen: No symptoms or risks identified at this time. Initial Sepsis Screen: Does the patient meet any 2 criteria? No. Patient's initial sepsis screen is negative. Does the patient have a suspected source of infection? No. Patient's initial sepsis screen is negative. Risk Assessment: Do you want to hurt yourself or someone else? Patient reports no desire to harm self or others. Onset of symptoms was March 26, 2025. 21:05 Method Of Arrival: Ambulatory dd2 21:05 Acuity: NADIA 4 dd2 Triage Assessment: 21:07 General: Appears in no apparent distress. Behavior is calm, cooperative, appropriate dd2 for age. Pain: Complains of pain in dorsum of left foot Pain does not radiate. Pain currently is 7 out of 10 on a pain scale. Quality of pain is described as BURNING. EDITOR NEWS: 21:07 LMP 02/27/2025, unknown dd2 Historical: - Allergies: 21:07 No Known Allergies; dd2 - PMHx: 21:07 Depression; dd2 - PSHx: 21:07 tubal ligation; dd2 - Immunization history:: Adult Immunizations up to date. - Infectious Disease History:: Denies. - Social history:: Smoking status: Patient reports the use of cigarette tobacco products, smokes one-half pack cigarettes per day. - Family history:: not pertinent. Screenin:07 [facility] ED Fall Risk Assessment (Adult) History of falling in the last 3 months, vc1 including since admission No falls in past 3 months (0 pts) Confusion or Disorientation No (0 pts) Intoxicated or Sedated No (0 pts) Impaired Gait No (0 pts) Mobility Assist Device Used No (0 pt) Altered Elimination No (0 pt) Score/Fall Risk Level 0 - 2 = Low Risk Oriented to surroundings, Maintained a safe environment, Educated pt \\T\\ family on fall prevention, incl call for assistance when getting out of bed. Abuse screen: Denies threats or abuse. Nutritional screening: No deficits noted. Tuberculosis screening: No symptoms or risk factors identified. Assessment: 23:09 General: Appears in no apparent distress. uncomfortable, obese, well groomed, well vc1 developed, Behavior is calm, cooperative, appropriate for age. Pain: Complains of pain in dorsum of left foot Pain does not radiate. Pain currently is 7 out of 10 on a pain scale. Neuro: Level of Consciousness is awake, alert, obeys commands, Oriented to person, place, time, situation, Appropriate for age. Cardiovascular: Heart tones S1 S2 present Capillary refill < 3 seconds Patient's skin is warm and dry. Respiratory: Airway is patent Respiratory effort is even, unlabored, Respiratory pattern is regular, symmetrical, Breath sounds are clear bilaterally. GI: No deficits noted. No signs and/or symptoms were reported involving the gastrointestinal system. : No deficits noted. No signs and/or symptoms were reported regarding the genitourinary system. EENT: No deficits noted. No signs and/or symptoms were reported regarding the EENT system. Derm: Skin is intact, is healthy with good turgor, Skin is dry, Skin is normal, Skin temperature is warm. Musculoskeletal: Circulation, motion, and sensation intact. Range of motion: intact in all extremities, Reports pain in dorsum of left foot. Vital Signs: 21:05 BP 142 / 78; Pulse 67; Resp 16; Temp 98.7; Pulse Ox 98% on R/A; Weight 93.89 kg; Height dd2 5 ft. 1 in. ; Pain 7/10; 21:05 Body Mass Index 39.11 (93.89 kg, 154.94 cm) dd2 21:05 Pain Scale: Adult dd2 [place] Coma Score: 03/27 20:14 Eye Response: spontaneous(4). Motor Response: obeys commands(6). Verbal Response: sp4 oriented(5). Total: 15. ED Course: 03/26 20:45 Patient arrived in ED. im 20:45 Kingston Arellano MD is Attending Physician. sp4 21:07 Triage completed. dd2 21:07 Arm band placed on right wrist. dd2 21:57 Foot Left 3 View XRAY In Process Unspecified. EDMS 21:57 Ankle Left 3 View XRAY In Process Unspecified. EDMS 23:08 No provider procedures requiring assistance completed. Patient did not have IV access vc1 during this emergency room visit. 23:09 Patient has correct armband on for positive identification. Provided Education on: f/u vc1 with PCP. 23:09 Ortho shoe applied to left foot. vc1 Administered Medications: 21:47 Drug: Methocarbamol PO 1500 mg PO once Route: PO; vc1 23:11 Follow up: Response: No adverse reaction; Marked relief of symptoms; Pain is decreased vc1 Medication: 23:09 VIS not applicable for this client. vc1 Outcome: 22:48 Discharge ordered by . sp4 23:08 Discharged to home ambulatory, with an ortho boot vc1 23:08 Condition: stable 23:08 Discharge instructions given to patient, Instructed on discharge instructions, follow up and referral plans. medication usage, Demonstrated understanding of instructions, follow-up care, medications, Prescriptions given X 2, 23:11 Patient left the ED. vc1 Signatures: Dispatcher [employer] EDMS Jenna Robert RN RN vc1 Kingston Arellano MD MD sp4 Litzy Jordan DIANA RN RN dd2
[2025-03-26 23:18] VITALS: BP 142/78; TEMP 98.7; O2SAT 98
== END 2025-03-26 23:11 | disposition home or self-care (01) ==
LOC: ER 20:42
DX: S93.622A Sprain of tarsometatarsal ligament of left foot, initial encounter (principal)
CPT/HCPCS: 99283